=== PATIENT | female | born 1970 | race African-American/Black ===

== ENCOUNTER 2024-12-11 12:40 | Emergency (ER) | payer MEDICAID ==
[~2024-12-11] VITALS: Ht 162.6 cm; Wt 110.0 kg
[~2024-12-11 12:40] MED LIST: ACET-3161; AMOX500T2; FAMO-135; FLONAS; IBUP-1008; PSEU30TA29
[2024-12-11 12:46] VITALS: O2SAT 99
[2024-12-11 12:47] VITALS: BP 141/79; PULSE 79; RESP 16; TEMP 98.5; O2SAT 99
[2024-12-11] MEDS ORDERED: AMOX1TAB16 MT (15:13)
[2024-12-11] MEDS: OXYMETAZOLINE HCL NASAL SPRAY 15ML BOTHNSTRLS SCH (16:18)
== END 2024-12-11 16:27 | disposition home or self-care (01) ==
LOC: ER 12:40
DX: J32.9 Chronic sinusitis, unspecified (principal); E11.9 Type 2 diabetes mellitus without complications; E78.00 Pure hypercholesterolemia, unspecified; I10 Essential (primary) hypertension
CPT/HCPCS: 99283